=== PATIENT | male | born 1970 ===

== ENCOUNTER 2017-03-26 10:37 | Emergency (ER) | payer BC ==
--- NOTE | 2017-03-26 11:35 | UC ---
Skin Complaint HPI - HPI Summary HPI Summary: left posterior shoulder with bug bite -itching with erythema a hives spreading out from the center---no known TIck bite - History of Current Complaint Chief Complaint: UCSkin Time Seen by Provider: 03/26/17 11:00 Stated Complaint: SKIN Hx Obtained From: Patient Onset/Duration: Sudden Onset, Lasting Days - 7 Skin Exposure Onset/Duration: Days Ago - 7 Timing: Constant Onset Severity: Mild Current Severity: Mild Pain Intensity: 0 - 0 pain just itchy Location: Discrete Character: Hives - sattalite erythemic itchy papula, Redness Aggravating Factor(s): Nothing Alleviating Factor(s): Nothing Associated Signs & Symptoms: Positive: Negative Related History: Insect Bite/Sting - Allergy/Home Medications Allergies/Adverse Reactions: Allergies Allergy/AdvReac Type Severity Reaction Status Date / Time No Known Allergies Allergy Verified 03/26/17 10:58 Home Medications: Home Medications NK [No Home Medications Reported] 03/26/17 [History Confirmed 03/26/17] Review of Systems Constitutional: Negative Skin: Rash - itching Eyes: Negative ENT: Negative Respiratory: Negative Cardiovascular: Negative Gastrointestinal: Negative Genitourinary: Negative Motor: Negative Neurovascular: Negative Musculoskeletal: Negative Neurological: Negative Psychological: Negative Is Patient Immunocompromised?: No All Other Systems Reviewed And Are Negative: Yes PMH/Surg Hx/FS Hx/Imm Hx Previously Healthy: Yes - Surgical History Surgical History: None - Family History Known Family History: Positive: None - Social History Occupation: Employed Full-time Lives: With Family Alcohol Use: Rare Substance Use Type: None Smoking Status (MU): Never Smoked Tobacco Have You Smoked in the Last Year: No Physical Exam Triage Information Reviewed: Yes Appearance: Well-Appearing, No Pain Distress, Well-Nourished Vital Signs: Initial Vital Signs Temp 98.3 F 03/26/17 10:59 Pulse 63 03/26/17 10:59 Resp 16 03/26/17 10:59 BP 137/77 03/26/17 10:59 Pulse Ox 100 03/26/17 10:59 Vital Signs Reviewed: Yes Eye Exam: Normal Eyes: Positive: Conjunctiva Clear ENT Exam: Normal ENT: Positive: Normal ENT inspection, Hearing grossly normal, Pharynx normal, TMs normal. Negative: Nasal congestion, Nasal drainage, Trismus, Muffled/ hoarse voice Dental Exam: Normal Neck exam: Normal Neck: Positive: Supple, Nontender, No Lymphadenopathy Respiratory Exam: Normal Respiratory: Positive: Chest non-tender, No respiratory distress, No accessory muscle use Cardiovascular Exam: Normal Cardiovascular: Positive: Pulses Normal, Brisk Capillary Refill Musculoskeletal Exam: Normal Musculoskeletal: Positive: Strength Intact, ROM Intact, No Edema Neurological Exam: Normal Neurological: Positive: Alert, Muscle Tone Normal Psychological Exam: Normal Skin Exam: Other Skin: Positive: Other - itching red rash (not bullseye like) Course/Dx - Course Course Of Treatment: hydrocortisone, benadryl, observe for s/s of Lyme follow with pcp - Diagnoses Provider Diagnoses: Local reaction to insect bite Discharge - Discharge Plan Condition: Stable Disposition: HOME Patient Education Materials: Diphenhydramine (By mouth), Corticosteroids (On the skin), Lyme Disease (ED), Insect Bite or Sting (ED) Referrals: [facility] [place] [facility] [Outside] - If Needed
== END 2017-03-26 12:04 | disposition home or self-care (01) ==
LOC: UCEAST 10:37
DX: T63.481A Toxic effect of venom of other arthropod, accidental (unintentional), initial encounter (principal); Y92.9 Unspecified place or not applicable; S40.262A Insect bite (nonvenomous) of left shoulder, initial encounter
CPT/HCPCS: 99201; G0463